=== PATIENT | male | born 1965 | race Caucasian/White ===

== ENCOUNTER 2017-03-03 11:46 | Day surgery (SDC) | payer BC ==
[~2017-03-03 11:46] MED LIST: NORMAL SALINE 1,000 ML IV PRN
[2017-03-03] MEDS ORDERED: NORMAL SALINE 1,000 ML IV ONE (12:30)
--- NOTE | 2017-03-03 14:12 | OR ---
Operative Report - Dictated Report Narrative: Procedure performed: TRUS guided prostate biopsy Anesthesia: Mac/IV sedation Preoperative diagnosis : elevated PSA Postoperative diagnosis: Same Indications: 51-year-old male with significant PSA elevation despite prior negative biopsy. We discussed options including continued conservative versus saturation biopsy versus consideration of MRI guided biopsy. Patient elected to proceed with above-mentioned procedure to further sample prostate try and make sure no prostate cancer present. Description of procedure: Preoperative antibiotics administered. Consent obtained. Patient positioned in the left lateral decubitus position. Probe inserted. Measurements taken. Prostate volume: 68 grams Biopsies were then obtained from either side directed laterally from the base, mid, and apical portions of the gland. Total biopsies right: 12 Total biopsies left: 12 Findings: Seminal vesicles were normal. No median lobe. [place] did have hyperechoic findings especially on the left side. Procedure took twice as long as usual secondary to the fact that twice as many biopsies are used in the saturation pattern. EBL: 10cc Specimen: prostate Condition: tolerated procedure Follow up: I will see him soon for results
[2017-03-03 14:48] VITALS: BP 129/87
== END 2017-03-03 11:47 | disposition home or self-care (01) ==
LOC: AMB 11:46
PROVIDERS: ATTEND Urology
PROC: 0V903ZX Drainage of Prostate, Percutaneous Approach, Diagnostic (ICD-10-PCS; principal; 2017-03-03 13:00)
DX: N40.1 Benign prostatic hyperplasia with lower urinary tract symptoms (principal); R39.12 Poor urinary stream; N41.1 Chronic prostatitis; Z68.32 Body mass index [BMI] 32.0-32.9, adult